=== PATIENT | male | born 1985 | race Caucasian/White ===

== ENCOUNTER 2016-11-18 10:09 | Emergency (ER) | payer OTHER ==
[~2016-11-18] VITALS: Wt 58.5 kg
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
[2016-11-18] MEDS ORDERED: LORA-441 PO (12:20)
[2016-11-18] MEDS ORDERED: MELA1TAB9 PO (12:20)
[2016-11-18] MEDS ORDERED: LORAZEPAM 1 MG TAB PO ONE (12:30)
== END 2016-11-18 12:35 | disposition home or self-care (01) ==
LOC: FTE 10:09
DX: F41.0 Panic disorder [episodic paroxysmal anxiety] (principal); F17.210 Nicotine dependence, cigarettes, uncomplicated; R00.2 Palpitations
CPT/HCPCS: 93005; Z7502; Z7610